=== PATIENT | female | born 1985 | race American Indian/Alaskan Native ===

== ENCOUNTER 2016-08-17 09:35 | Emergency (ER) | payer SELFPAY ==
[2016-08-17 09:42] VITALS: BP 113/64
[2016-08-17] MEDS ORDERED: XYLOCAINE 1% MPF 5 mL INFILTRATI ONE (10:11)
[2016-08-17] MEDS ORDERED: ROCEPHIN IM ONE (10:11)
[2016-08-17 10:18] LABS: Bacteria,Urine 2+ /HPF (Negative); Bilirubin,Urine NEG (Negative); Blood,Urine NEG (Negative); Ketones,Urine TR mg/dL (Negative); Leukocyte Esterase,Urine MOD (Negative); Mucus,Urine FEW /HPF; Nitrite,Urine NEG (Negative); Renal Epithelial Cells,Urine 2 /LPF; Urobilinogen,Urine < 2.0 mg/dL (<2.0)
--- NOTE | 2016-08-17 11:12 | Emergency Department Report ---
Entered by NIRU POWELL, acting as scribe for KATHRYN PLASCENCIA PA. ED General Adult HPI - General Chief complaint: Urogenital-Female Stated complaint: POSS UTI SEEN AT [facility] Time Seen by Provider: 08/17/16 09:52 Source: patient Mode of arrival: Ambulatory Limitations: No Limitations - History of Present Illness Initial comments: 30 y/o female patient presents for evaluation of dysuria with associated lower abdominal pain for the past week. Symptoms have progressed and worsened over the last week. She was seen by her doctor at [facility], was diagnosed with a UTI and prescribed Macrobid. She was unable to afford the medication so the Rx was switched to Bactrim. Since starting the medication symptoms have not improved. Additionally she reports throat pain and noted pus on the tonsils. She denies vaginal discharge or hematuria. She states the symptoms are similar to when she was previously diagnosed with a UTI. No hx of pelvic inflammatory disease and no concern for STDs. During her most recent doctor's visit she was tested for STDs and results were negative. G 3;P 3;A 0 -: Gradual, week(s) (1) Location: abdomen Radiation: non-radiation Consistency: constant Improves with: none Worsens with: none Associated Symptoms: malaise Treatments Prior to Arrival: other (Bactrim) - Related Data Previous Rx's Medication Instructions Recorded Last Taken Type Amoxicillin 1,000 mg PO BID #40 capsule 08/17/16 Unknown Rx Ciprofloxacin HCl [Ciprofloxacin 500 mg PO BID #14 tablet 08/17/16 Unknown Rx TAB] traMADol [Ultram 50 MG tab] 50 mg PO Q4HR PRN #20 tablet 08/17/16 Unknown Rx Allergies Allergy/AdvReac Type Severity Reaction Status Date / Time No Known Allergies Allergy Unverified 08/17/16 09:38 ED Review of Systems Comment: All other systems reviewed and negative Constitutional: denies: fever ENT: throat pain. denies: ear pain Respiratory: denies: cough, shortness of breath Cardiovascular: denies: chest pain Gastrointestinal: abdominal pain. denies: nausea, vomiting Genitourinary: dysuria. denies: frequency, hematuria Musculoskeletal: denies: back pain Skin: denies: rash Neurological: denies: headache ED Past Medical Hx - Past Medical History Previous Medical History?: Yes Additional medical history: UTI - Surgical History Past Surgical History?: No - Social History Smoking Status: Never Smoker Substance Use Type: Alcohol, Prescribed - Medications Home Medications: Home Medications Medication Instructions Recorded Confirmed Last Taken Type Amoxicillin 1,000 mg PO BID #40 capsule 08/17/16 Unknown Rx Ciprofloxacin HCl [Ciprofloxacin 500 mg PO BID #14 tablet 08/17/16 Unknown Rx TAB] traMADol [Ultram 50 MG tab] 50 mg PO Q4HR PRN #20 tablet 08/17/16 Unknown Rx ED Physical Exam - General Limitations: No Limitations General appearance: alert, in no apparent distress - Head Head exam: Present: atraumatic, normocephalic - Eye Eye exam: Present: normal appearance, PERRL - ENT ENT exam: Present: other (exudative tonsils, erythematous and swollen) - Neck Neck exam: Present: normal inspection - Respiratory Respiratory exam: Present: normal lung sounds bilaterally. Absent: respiratory distress - Cardiovascular Cardiovascular Exam: Present: regular rate, normal rhythm, normal heart sounds - GI/Abdominal GI/Abdominal exam: Present: soft, tenderness, normal bowel sounds. Absent: guarding, rebound - Extremities Exam Extremities exam: Present: normal inspection, full ROM - Back Exam Back exam: Present: normal inspection - Neurological Exam Neurological exam: Present: alert, oriented X3 - Skin Skin exam: Present: warm, dry, intact ED Course Vital Signs 08/17/16 09:38 Temperature 99.7 F H Pulse Rate 112 H Respiratory 20 Rate Blood Pressure 113/64 O2 Sat by Pulse 97 Oximetry ED Medical Decision Making - Lab Data Lab Results 08/17/16 Range/Units 09:54 Urine Color Yellow (Yellow) Urine Turbidity Slightly-cloudy (Clear) Urine pH 5.0 (5.0-7.0) Ur Specific [place] 1.014 (1.003-1.030) Urine Protein 100 mg/dl (Negative) mg/dL Urine Glucose (UA) Neg (Negative) mg/dL Urine Ketones Tr (Negative) mg/dL Urine Blood Neg (Negative) Urine Nitrite Neg (Negative) Urine Bilirubin Neg (Negative) Urine Urobilinogen < 2.0 (<2.0) mg/dL Ur Leukocyte Esterase Mod (Negative) Urine WBC (Auto) 87.0 H (0.0-6.0) /HPF Urine RBC (Auto) 30.0 (0.0-6.0) /HPF U Epithel Cells (Auto) 7.0 (0-13.0) /HPF Urine Bacteria (Auto) 2+ (Negative) /HPF Ur Renal Epithelial Cell 2 /LPF Urine Mucus Few /HPF Urine HCG, Qual Negative (Negative) - Medical Decision Making Patient is nontoxic and hemodynamically stable. Previous records reviewed and obtained from [facility]. Reviewed urine culture results showing Escherichia coli with sensitivity to Cipro and ceftriaxone. Culture results which showed resistance to Bactrim of which patient was placed on from the clinic. I advised patient to stop the previously prescribed Bactrim and I will start patient on Cipro for her UTI. Patient noted to have exudative tonsillitis as well. Exam today and therefore I will also start patient on appropriate antibiotics for treatment of potential strep throat. Patient is nontoxic and hemodynamically stable. Patient tolerating oral fluids without any complications. Patient was given Rocephin 1 g IM here in the ER. Patient is in agreement with treatment plan and patient is stable for discharge. ED Disposition Clinical Impression: Acute UTI (urinary tract infection), Exudative pharyngitis Disposition: DISCHARGED TO HOME OR SELFCARE Is pt being admited?: No Does the pt Need Aspirin: No Condition: Good Instructions: Urinary Tract Infection in Women (ED), Strep Throat (ED) Prescriptions: Amoxicillin 1,000 mg PO BID #40 capsule Ciprofloxacin HCl [Ciprofloxacin TAB] 500 mg PO BID #14 tablet traMADol [Ultram 50 MG tab] 50 mg PO Q4HR PRN #20 tablet PRN Reason: Pain Referrals: PRIMARY CARE,MD [Primary Care Provider] - 3-5 Days Forms: Work/School Release Form(ED) Time of Disposition: 11:12 This documentation as recorded by the ANDRE jesus SHALANE,accurately reflects the service I personally performed and the decisions made by me,KATHRYN PLASCENCIA PA.
== END 2016-08-17 11:18 | disposition home or self-care (01) ==
LOC: ED 09:35
DX: N39.0 Urinary tract infection, site not specified (principal); J02.9 Acute pharyngitis, unspecified
CPT/HCPCS: 81001; 81025; 96372; 99282; J0696